=== PATIENT | male | born 1980 | race Caucasian/White ===

== ENCOUNTER 2018-08-08 12:37 | Emergency (ER) | payer SELFPAY ==
[~2018-08-08] VITALS: Ht 177.8 cm; Wt 60.0 kg
[~2018-08-08 12:37] MED LIST: MEDDOSEPAK OR; SMZ-TMP DS1 TAB PO; SUBUTEX8 MG SL; ULTRAM50 MG OR; no homemeds
[2018-08-08] MEDS ORDERED: CLINDAMYCIN300 M1 PO (13:16)
[2018-08-08] MEDS ORDERED: IBUPROFEN600 MG PO (13:17)
[2018-08-08 13:20] VITALS: BP 122/63
== END 2018-08-08 13:20 | disposition home or self-care (01) | DRG 603 ==
LOC: ED 12:37
DX: L03.114 Cellulitis of left upper limb (principal); F17.200 Nicotine dependence, unspecified, uncomplicated